=== PATIENT | male | born 1980 | race Caucasian/White ===

== ENCOUNTER 2020-11-15 19:08 | Emergency (ER) | payer BC, OTHER ==
[~2020-11-15] VITALS: Ht 195.5 cm; Wt 163.8 kg
--- OUTSIDE RECORDS SUMMARY | 2020-11-15 19:15 | XMS REPORT | Encounter Summary ---
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 Name Role Phone PCP Unavailable Reason for Visit * Reason Onset Date Comments Letter for School/Work 10/17/2020 Encounter Details Care Team Description Date Type Department Bedolla, Jeremie Berry MD [address] [facility] [address] [place], [place] [id number] Letter for School/Work 10/17/2020 Telephone [facility] [address] [place] [address] Social History Date Tobacco Use Types Packs/Day Years Used Former Smoker Smokeless Tobacco: Former User Sex Assigned at Date Recorded Not on file documented as of this encounter Miscellaneous Notes * Telephone Encounter - Jeanne Reddy RN - 10/21/2020 2:59 PM CDT Pt LVM that his fax number was [phone]. Called Jerome back to confirm which number to send to. He requested it be sent to his number ([phone]) and he s aid he would send it on to his HR himself. Letter completed and signed by RK. Faxed to preferred number. Fax confirmation received. * Telephone Encounter - Jeanne Reddy RN - 10/21/2020 11:17 AM CDT Pt called and requested letter be emailed to him and faxed to [phone]. Call ed him back and LM that we cannot email, but explained alternatives. Let him itzel w we would be faxing the letter to the updated number. Gave our number so he can call back. * Telephone Encounter - Jeremie Bedolla MD - 10/21/2020 7:37 AM CDT That's fine. Thanks Tee * Telephone Encounter - Jeanne Reddy RN - 10/17/2020 2:38 PM CDT Pt's damaris Angel called and stated Jerome's work never passed the letter from Main rosario onto HR. She stated they are trying to get him to work rotating shifts again , which she said RKRuiz said was not an option because it would lead to sleep depri vation and possible seizures. Informed her that MIKERuiz is out of the office until M onday, she said that next week would be fine. Requests it be sent to [facility] at fax number [phone]. documented in this encounter Plan of Treatment Not on filedocumented as of this encounter Visit Diagnoses Not on filedocumented in this encounter
[2020-11-15] MEDS ORDERED: LIDOCAINE 1% INJ 20 ML 20 ML VIAL INJ ONE (19:30)
[2020-11-15] MEDS ORDERED: TETANUS,DIPTH,PERTUSS P/F (BOOSTRIX) 0.5 ML VIAL IM ONE (19:30)
--- NOTE | 2020-11-15 19:30 | ED Lower Extremity ---
General Chief Complaint: Lower Extremity Stated Complaint: LT MIDDLE FINGER LAC Source: patient Exam Limitations: no limitations History of Present Illness Date Seen by Provider: Nov 15, 2020 Time Seen by Provider: 19:11 Initial Comments 40-year-old male with no significant past medical history coming in after he sliced his left middle finger with a clean knife just prior to arrival. He is right-hand dominant. He is a housing officer. Had some bleeding but was able to stop it with pressure. Denies taking any blood thinners or other medications. Pain is constant, moderate, and throbbing. Nothing seems to make it better or worse right now. Otherwise denying any other acute complaints. Tetanus last updated greater than 10 years ago. Allergies and Home Medications Allergies Coded Allergies: No Known Drug Allergies (Unverified , 11/15/20) Patient Home Medication List Home Medication List Reviewed: Yes Sulfamethoxazole/Trimethoprim (Sulfamethoxazole-Tmp Ss Tablet) 1 Each Tablet, 1 EACH PO BID Prescribed by: CONCHITA BRADLEY on 11/15/202001 Review of Systems Constitutional: no symptoms reported EENTM: No blurred vision Respiratory: No cough Cardiovascular: No chest pain Gastrointestinal: No abdominal pain Genitourinary: no symptoms reported Musculoskeletal: no symptoms reported Skin: No rash Psychiatric/Neurological: No Symptoms Reported All Other Systems Reviewed Negative Unless Noted: Yes Past Qyqrfys-Grqhbz-Fndlie Hx Patient Social History Tobacco Use?: No Physical Exam Vital Signs Vital Signs - First Documented 11/15/20 19:13 Temp 35.7 Pulse 86 Resp 16 B/P (MAP) 143/101 (115) Pulse Ox 97 O2 Delivery Room Air Capillary Refill : Height, Weight, BMI Height: '" Weight: lbs. oz. kg; BMI Method: General Appearance: WD/WN, no apparent distress HEENT: PERRL/EOMI, normal ENT inspection, pharynx normal Neck: non-tender, full range of motion, supple, normal inspection Cardiovascular: regular rate, rhythm, no edema, no murmur Respiratory: chest non-tender, lungs clear, normal breath sounds, no accessory muscle use Gastrointestinal: normal bowel sounds, non tender, soft Back: normal inspection Neurologic/Tendon: normal sensation, normal motor functions Neurologic/Psychiatric: no motor/sensory deficits, alert, normal mood/affect Skin: normal color, warm/dry, other (1-1/2 cm laceration to the PIP joint of the dorsal aspect of the left middle finger, 5 out of 5 strength with extension of the digit and flexion, normal distal sensation and capillary refill, no tendon visible on exam as it is more superficial) Procedures/Interventions Wound Location: Upper Extremities Other Wound Location Left middle finger Wound Length (cm): 1.5 Wound's Depth, Shape: superficial Wound Explored: clean Irrigated w/ Saline (ccs): 500 Betadine Prep?: Yes Anesthesia: 1% Lidocaine Volume Anesthetic (ccs): 2 Suture: Plain (6-0 fast absorbing gut used) Suture Size: 6-0 Number of Sutures: 5 Sterile Dressing Applied?: Yes Progress Placed finger in splint after given the wound is over a joint Progress/Results/Core Measures Results/Orders My Orders Orders - CONCHITA BRADLEY MD Dipht,Pertuss(Acell),Tet Adult (Boostrix (11/15/20 19:30) Lidocaine 1% Inj 20 Ml (Xylocaine 1% Inj (11/15/20 19:30) Finger(S) (11/15/20 19:30) Medications Given in ED Current Medications Medications Dose Ordered Sig/Zak Route Start Time Stop Time Status Last Admin Dose Admin Diphtheria/ Tetanus/Acell Pertussis 0.5 ml ONCE ONCE IM 11/15/20 19:30 11/15/20 19:32 DC 11/15/20 20:13 0.5 ML Lidocaine HCl 20 ml ONCE ONCE INJ 11/15/20 19:30 11/15/20 19:32 DC 11/15/20 20:12 20 ML Vital Signs/I&O 11/15/20 11/15/20 19:13 20:16 Temp 35.7 35.7 Pulse 86 86 Resp 16 16 B/P (MAP) 143/101 (115) 143/101 Pulse Ox 97 97 O2 Delivery Room Air Room Air Progress Progress Note : Progress Note 4-year-old male with above history coming in after cutting his left middle finger. ABCs were intact and vitals were stable on presentation. Physical exam with the after mentioned laceration. Is neurovascularly intact and has full extension of his finger. The wound is fairly superficial. It was cleaned, numbed, and closed with absorbing suture. He was placed in a splint given the wound being right over his DIP joint and likely breaking the suture if he continues to bend it. I told him to take the splint off after 5 days. X-ray ordered and interpreted by me showing no fracture or foreign body. I believe he is stable for discharge. He was sent home with strict return precautions. Diagnostic Imaging Diagonstic Imaging: Xray Plain Films/CT/US/NM/MRI: hand Comments X-ray left hand ordered and interpreted by me showing no fracture or foreign body Departure Impression Primary Impression: Finger laceration Qualified Codes: S61.213A - Laceration without foreign body of left middle finger without damage to nail, initial encounter Disposition: HOME, SELF-CARE Condition: Stable Departure-Patient Inst. Decision time for Depature: 20:02 Referrals: NO,LOCAL PHYSICIAN (PCP) Primary Care Physician Patient Instructions: Laceration Repair With Stitches ED Add. Discharge Instructions: You were seen in the emergency department after you cut your left middle finger. Dissolvable stitches were placed that do not need to be removed. If you have any fever, drainage, or redness from that finger then please go to the ER otherwise please leave the splint on for 5 days. Please take antibiotics for 4 days. Please take ibuprofen for pain if needed. All discharge instructions reviewed with patient and/or family. Voiced understanding. Scripts Sulfamethoxazole/Trimethoprim (Sulfamethoxazole-Tmp Ss Tablet) 1 Each Tablet 1 EACH PO BID for 4 Days, #8 TAB Prov: CONCHITA BRADLEY MD 11/15/20 CONCHITA BRADLEY MD Nov 15, 2020 19:30
--- NOTE | 2020-11-15 19:51 | Diagnostic Imaging Report ---
INDICATION: Laceration of long finger. COMPARISON: None available. TECHNIQUE: 3 views of left long finger. FINDINGS AND IMPRESSION: 1. No radiopaque foreign body in the long finger. 2. No fracture or or malalignment. Dictated by: Dictated on workstation # [id number]
[2020-11-15] MEDS ORDERED: SULF-11 PO (20:02)
[2020-11-15 20:16] VITALS: BP 143/101
== END 2020-11-15 20:16 | disposition home or self-care (01) ==
LOC: ER FS 19:12
DX: S61.213A Laceration without foreign body of left middle finger without damage to nail, initial encounter (principal); Z23 Encounter for immunization; W26.0XXA Contact with knife, initial encounter
CPT/HCPCS: 73140; 90715